=== PATIENT | female | born 1965 | race Caucasian/White ===

== ENCOUNTER 2017-01-30 16:22 | Emergency (ER) | payer MEDICAID ==
[~2017-01-30] VITALS: Ht 165.1 cm; Wt 75.0 kg
[2017-01-30] MEDS ORDERED: ZOLP10TA6 PO (20:30)
[2017-01-30] MEDS ORDERED: LORA10TA7 PO (20:30)
[2017-01-30] MEDS ORDERED: AMLO5TAB4 PO (20:30)
[2017-01-30] MEDS ORDERED: KETOROLAC 60MG/2ML VIAL IM NR (23:34)
[2017-01-30] MEDS ORDERED: ONDANSETRON 4MG ODT PO NR (23:45)
[2017-01-31 00:55] LABS: EOSINOPHILS % 1.7 % (0.0-5.0); HEMATOCRIT. 39.5 % (36.0-48.0); HEMOGLOBIN. 13.4 g/dL (12.0-16.0); LYMPHOCYTES % 46.9 % (20.0-50.0); MEAN CORPUSCULAR HEMOGLOBIN 29.8 pg (28.0-32.0); MEAN CORPUSCULAR VOLUME 87.7 fL (81.0-99.0); MEAN PLATELET VOLUME 9.9 fl (7.4-10.4); MONOCYTES % 5.4 % (2.0-8.0); PLATELET 169 x1000/uL (130-400); RED CELL DISTRIBUTION WIDTH 14.1 % (11.6-14.6)
[2017-01-31 01:02] LABS: CHLORIDE 106 mEq/L (98-107)
[2017-01-31 01:11] LABS: CARBON DIOXIDE 27 mEq/L (21-32); ETHANOL BLOOD < 10 mg/dL
[2017-01-31 01:59] VITALS: BP 125/70
== END 2017-01-31 02:01 | disposition home or self-care (01) ==
LOC: ER 17:41
DX: R51 Headache (principal); R09.81 Nasal congestion; I10 Essential (primary) hypertension; G47.00 Insomnia, unspecified; Z90.710 Acquired absence of both cervix and uterus
CPT/HCPCS: 36415; 70450; 80053; 85025; 93005; 96372; 99285; G0482; J1885; Q0162

== ENCOUNTER 2018-06-23 16:18 | Emergency (ER) | payer MEDICAID ==
[~2018-06-23] VITALS: Ht 157.5 cm; Wt 73.0 kg
[~2018-06-23 16:18] MED LIST: AMLO5TAB4 PO; LORA10TA7 PO; ZOLP10TA6 PO
[2018-06-24] MEDS ORDERED: METOCLOPRAMIDE HCL 10MG/2ML VIAL IV ONE
[2018-06-24] MEDS ORDERED: DIPHENHYDRAMINE 50MG/ML VIAL IV ONE
[2018-06-24 00:22] LABS: BASOPHILS % 1.2 % (0.0-2.0); EOSINOPHILS % 2.2 % (0.0-5.0); HEMATOCRIT. 40.1 % (36.0-48.0); HEMOGLOBIN. 13.7 g/dL (12.0-16.0); LYMPHOCYTES % 43.9 % (20.0-50.0); MEAN CORPUSCULAR HEMOGLOBIN 30.8 pg (28.0-32.0); MEAN CORPUSCULAR VOLUME 90.1 fL (81.0-99.0); MEAN PLATELET VOLUME 10.1 fl (7.4-10.4); MONOCYTES % 7.3 % (2.0-8.0); NEUTROPHILS % 45.4 % (40.0-76.0); PLATELET 150 x1000/uL (130-400); RED BLOOD CELL COUNT 4.45 mill/uL (4.2-5.4)
[2018-06-24 00:29] LABS: PROTHROMBIN TIME 10.4 sec (9.1-11.1)
[2018-06-24 00:55] LABS: CHLORIDE 106 mEq/L (98-107)
[2018-06-24 02:16] VITALS: BP 140/69
== END 2018-06-24 02:23 | disposition home or self-care (01) ==
LOC: ER 16:18
DX: I10 Essential (primary) hypertension (principal); E11.9 Type 2 diabetes mellitus without complications; E78.00 Pure hypercholesterolemia, unspecified
CPT/HCPCS: 36415; 70450; 71045; 80053; 83880; 84484; 85025; 85610; 96374; 96375; 99284; J1200; J2765; Z7610

== ENCOUNTER 2020-11-23 12:15 | Inpatient (IN) | payer MEDICAID ==
[~2020-11-23] VITALS: Ht 162.6 cm; Wt 73.3 kg
[2020-11-23] MEDS ORDERED: EPINEPHRINE 1:1000 1 MG/ML AMP INJ ONE (12:30)
[2020-11-23] MEDS ORDERED: MORPHINE SULFATE 4 MG/ML CPJ (NOT FOR IM USE) IV STA (12:56)
[2020-11-23] MEDS ORDERED: ACETAMINOPHEN 325MG TABLET PO STA (12:56)
[2020-11-23] MEDS ORDERED: VANCOMYCIN 1 G PREMIX 200 ML IV ONE (13:00)
[2020-11-23] MEDS ORDERED: SODIUM CHLORIDE 0.9% 1000ML BAG (SEPSIS BOLUS) IV ONE (13:00)
[2020-11-23] MEDS ORDERED: PIPERACILLIN/TAZ 3.375G PREMIX 50 ML IV ONE (13:00)
[2020-11-23 13:42] LABS: CHLORIDE 104 mEq/L (98-107)
[2020-11-23 13:59] LABS: BASOPHILS % 0.6 % (0.0-2.0); EOSINOPHILS % 0.2 % (0.0-5.0); HEMATOCRIT. 42.3 % (36.0-48.0); HEMOGLOBIN. 14.2 g/dL (12.0-16.0); LYMPHOCYTES % 21.1 % (20.0-50.0); MEAN CORPUSCULAR HEMOGLOBIN 31.8 pg (28.0-32.0); MEAN CORPUSCULAR VOLUME 94.4 fL (81.0-99.0); MEAN PLATELET VOLUME 10.5 fl (7.4-10.4); MONOCYTES % 6.5 % (2.0-8.0); NEUTROPHILS % 71.6 % (40.0-76.0); PLATELET 146 x1000/uL (130-400); RED BLOOD CELL COUNT 4.47 mill/uL (4.2-5.4); RED CELL DISTRIBUTION WIDTH 13.9 % (11.6-14.6)
[2020-11-23 14:26] LABS: PROTHROMBIN TIME 10.8 sec (9.6-11.0)
[2020-11-23] MEDS ORDERED: POTASSIUM CHLORIDE INJ 40 MEQ in DEXT 5% WATER 250 ML IV NR (16:00)
[2020-11-23] MEDS: AMLODIPINE 10MG TABLET PO SCH (18:00)
[2020-11-23 18:35] LABS: CLARITY URINE TURBID (CLEAR); COLOR URINE YELLOW (YELLOW); KETONES URINE TRACE (NEGATIVE); LEUKOCYTE ESTERASE URINE 2+ (NEGATIVE); NITRITE URINE NEGATIVE (NEGATIVE); OCCULT BLOOD URINE NEGATIVE (NEGATIVE); PH URINE 5.5 (4.5-8.0); PROTEIN URINE 1+ (NEGATIVE); UROBILINOGEN URINE 0.2 E.U./dL (0.2-1.0)
[2020-11-23] MEDS: BLOOD SUGAR DIAGNOSTIC STRIP TEST SCH (19:15)
[2020-11-23 21:35] VITALS: BP 139/70
[2020-11-24] VITALS (8 sets, daily range): BP systolic 109–140; BP diastolic 52–86
[2020-11-24] MEDS: AMPICILLIN SOD/SULBACTAM NA 3 G in SODIUM CHLORIDE 0.9% 100 ML IV SCH ×4 (00:09→18:11)
[2020-11-24] MEDS: ACETAMINOPHEN 325MG TABLET PO PRN ×3 (00:41→17:25)
[2020-11-24] MEDS ORDERED: METHOCARBAMOL 500MG TABLET PO PRN (01:00)
[2020-11-24] MEDS ORDERED: CETIRIZINE 10MG TABLET PO PRN (03:00)
[2020-11-24] MEDS: VANCOMYCIN 750 MG PREMIX 150 ML IV SCH ×2 (04:17→15:23)
[2020-11-24] MEDS: BLOOD SUGAR DIAGNOSTIC STRIP TEST SCH ×4 (06:09→17:30)
[2020-11-24 06:15] LABS: BASOPHILS % 0.3 % (0.0-2.0); EOSINOPHILS % 0.1 % (0.0-5.0); HEMATOCRIT. 37.8 % (36.0-48.0); HEMOGLOBIN. 12.8 g/dL (12.0-16.0); LYMPHOCYTES % 19.4 % (20.0-50.0); MEAN CORPUSCULAR HEMOGLOBIN 32.1 pg (28.0-32.0); MEAN CORPUSCULAR VOLUME 94.8 fL (81.0-99.0); MEAN PLATELET VOLUME 10.8 fl (7.4-10.4); NEUTROPHILS % 72.2 % (40.0-76.0); PLATELET 129 x1000/uL (130-400); RED BLOOD CELL COUNT 3.99 mill/uL (4.2-5.4); RED CELL DISTRIBUTION WIDTH 13.9 % (11.6-14.6)
[2020-11-24] MEDS: GABAPENTIN 300MG CAPSULE PO SCH ×3 (06:17→21:32)
[2020-11-24] MEDS: METFORMIN HCL 500MG TABLET PO SCH (06:38)
[2020-11-24 07:00] LABS: CHLORIDE 106 mEq/L (98-107)
[2020-11-24] MEDS ORDERED: POTASSIUM CHLORIDE 20MEQ TABLET SR PO SCH (08:45)
[2020-11-24] MEDS: OMEPRAZOLE 20MG CAPSULE EXTENDED RELEASE PO SCH (08:52)
[2020-11-24] MEDS: AMLODIPINE 10MG TABLET PO SCH (08:52)
[2020-11-24] MEDS ORDERED: METFORMIN HCL 500MG TABLET PO ONE (09:00)
[2020-11-24] MEDS ORDERED: INSULIN GLARGINE UD 100 UNITS/ML SYR SUBCUT SCH ×2 (15:00→22:00)
[2020-11-24] MEDS ORDERED: FAMOTIDINE 20MG TABLET PO SCH (21:00)
[2020-11-24] MEDS: ATORVASTATIN CALCIUM 20MG TABLET PO SCH (21:32)
[2020-11-24] MEDS: HYDROCODONE/ACETAMINOPHEN 10/325MG TABLET PO PRN (21:57)
[2020-11-25] VITALS (7 sets, daily range): BP systolic 111–131; BP diastolic 60–78
[2020-11-25] MEDS: AMPICILLIN SOD/SULBACTAM NA 3 G in SODIUM CHLORIDE 0.9% 100 ML IV SCH ×4 (00:18→18:40)
[2020-11-25] MEDS: BLOOD SUGAR DIAGNOSTIC STRIP TEST SCH ×5 (00:30→20:45)
[2020-11-25 04:20] LABS: CHLORIDE 107 mEq/L (98-107)
[2020-11-25] MEDS ORDERED: VANCOMYCIN 750 MG PREMIX 150 ML IV SCH (06:00)
[2020-11-25] MEDS: GABAPENTIN 300MG CAPSULE PO SCH ×3 (06:00→20:45)
[2020-11-25] MEDS: HYDROCODONE/ACETAMINOPHEN 10/325MG TABLET PO PRN ×2 (06:10→13:44)
[2020-11-25] MEDS: METFORMIN HCL 500MG TABLET PO SCH (06:52)
[2020-11-25] MEDS: AMLODIPINE 10MG TABLET PO SCH (09:00)
[2020-11-25] MEDS: OMEPRAZOLE 20MG CAPSULE EXTENDED RELEASE PO SCH (09:05)
[2020-11-25] MEDS ORDERED: POTASSIUM CHLORIDE 20MEQ TABLET SR PO SCH (12:00)
[2020-11-25] MEDS ORDERED: DEXTROSE 50% WATER 50ML SYRINGE IV PRN (12:30)
[2020-11-25] MEDS: INSULIN LISPRO 100 UNITS/ML SUBCUT SCH ×3 (13:43→20:45)
[2020-11-25] MEDS: VANCOMYCIN 1 G PREMIX 200 ML IV SCH ×2 (15:04→20:44)
[2020-11-25] MEDS ORDERED: NALOXONE HCL 0.4MG/ML VIAL IV PRN (16:30)
[2020-11-25] MEDS ORDERED: ONDANSETRON HCL 4MG/2ML INJ IV PRN (18:30)
[2020-11-25] MEDS: ACETAMINOPHEN 325MG TABLET PO PRN (18:42)
[2020-11-25] MEDS: ATORVASTATIN CALCIUM 20MG TABLET PO SCH (20:45)
[2020-11-25] MEDS: INSULIN GLARGINE UD 100 UNITS/ML SYR SUBCUT SCH (22:15)
[2020-11-26] VITALS: BP 120/64
[2020-11-26] MEDS: AMPICILLIN SOD/SULBACTAM NA 3 G in SODIUM CHLORIDE 0.9% 100 ML IV SCH ×4 (00:22→17:49)
[2020-11-26] MEDS: HYDROCODONE/ACETAMINOPHEN 10/325MG TABLET PO PRN ×4 (00:27→20:21)
[2020-11-26 04:00] VITALS: BP 132/67
[2020-11-26] MEDS: VANCOMYCIN 1 G PREMIX 200 ML IV SCH ×3 (05:05→22:03)
[2020-11-26] MEDS: GABAPENTIN 300MG CAPSULE PO SCH ×3 (05:52→21:27)
[2020-11-26] MEDS: BLOOD SUGAR DIAGNOSTIC STRIP TEST SCH ×4 (05:52→21:27)
[2020-11-26] MEDS: INSULIN LISPRO 100 UNITS/ML SUBCUT SCH ×4 (06:43→22:07)
[2020-11-26] MEDS: METFORMIN HCL 500MG TABLET PO SCH (06:44)
[2020-11-26 08:00] VITALS: BP 123/74
[2020-11-26] MEDS: FAMOTIDINE 20MG TABLET PO SCH ×2 (09:02→21:27)
[2020-11-26] MEDS: AMLODIPINE 10MG TABLET PO SCH (09:02)
[2020-11-26 12:00] VITALS: BP 124/69
[2020-11-26 13:21] LABS: CHLORIDE 103 mEq/L (98-107)
[2020-11-26 16:00] VITALS: BP 110/63
[2020-11-26 20:00] VITALS: BP 130/73
[2020-11-26] MEDS: ATORVASTATIN CALCIUM 20MG TABLET PO SCH (21:27)
[2020-11-26] MEDS: INSULIN GLARGINE UD 100 UNITS/ML SYR SUBCUT SCH (22:07)
[2020-11-27] VITALS: BP 133/68
[2020-11-27] MEDS: AMPICILLIN SOD/SULBACTAM NA 3 G in SODIUM CHLORIDE 0.9% 100 ML IV SCH ×4 (00:11→17:23)
[2020-11-27] MEDS: HYDROCODONE/ACETAMINOPHEN 10/325MG TABLET PO PRN ×3 (00:12→20:57)
[2020-11-27 04:00] VITALS: BP 134/75
[2020-11-27] MEDS: DIPHENHYDRAMINE 50MG/ML VIAL IV PRN ×2 (04:10→23:16)
[2020-11-27] MEDS: GABAPENTIN 300MG CAPSULE PO SCH ×3 (05:31→21:36)
[2020-11-27] MEDS: VANCOMYCIN 1 G PREMIX 200 ML IV SCH ×3 (06:42→21:37)
[2020-11-27] MEDS: BLOOD SUGAR DIAGNOSTIC STRIP TEST SCH ×4 (07:01→21:27)
[2020-11-27] MEDS: INSULIN LISPRO 100 UNITS/ML SUBCUT SCH ×4 (07:14→21:39)
[2020-11-27 08:00] VITALS: BP 105/58
[2020-11-27] MEDS: METFORMIN HCL 500MG TABLET PO SCH (08:39)
[2020-11-27] MEDS: FAMOTIDINE 20MG TABLET PO SCH ×2 (08:39→21:36)
[2020-11-27] MEDS: AMLODIPINE 10MG TABLET PO SCH (08:39)
[2020-11-27 12:00] VITALS: BP 119/60
[2020-11-27 16:00] VITALS: BP 110/57
[2020-11-27 20:00] VITALS: BP 128/65
[2020-11-27] MEDS: ATORVASTATIN CALCIUM 20MG TABLET PO SCH (21:36)
[2020-11-27] MEDS: INSULIN GLARGINE UD 100 UNITS/ML SYR SUBCUT SCH (21:38)
[2020-11-28] VITALS: BP 113/70
[2020-11-28] MEDS: AMPICILLIN SOD/SULBACTAM NA 3 G in SODIUM CHLORIDE 0.9% 100 ML IV SCH ×3 (00:27→12:33)
[2020-11-28] MEDS: HYDROCODONE/ACETAMINOPHEN 10/325MG TABLET PO PRN ×2 (02:11→11:02)
[2020-11-28 04:00] VITALS: BP 118/75
[2020-11-28] MEDS: BLOOD SUGAR DIAGNOSTIC STRIP TEST SCH ×2 (06:27→11:40)
[2020-11-28] MEDS: GABAPENTIN 300MG CAPSULE PO SCH ×2 (06:27→14:59)
[2020-11-28] MEDS: INSULIN LISPRO 100 UNITS/ML SUBCUT SCH ×2 (06:50→11:56)
[2020-11-28] MEDS: VANCOMYCIN 1 G PREMIX 200 ML IV SCH (06:50)
[2020-11-28 08:00] VITALS: BP 136/71
[2020-11-28] MEDS: AMLODIPINE 10MG TABLET PO SCH (08:58)
[2020-11-28] MEDS: METFORMIN HCL 500MG TABLET PO SCH (08:58)
[2020-11-28] MEDS: FAMOTIDINE 20MG TABLET PO SCH (08:58)
[2020-11-28 10:43] LABS: CHLORIDE 105 mEq/L (98-107)
[2020-11-28 10:45] LABS: BASOPHILS % 0.4 % (0.0-2.0); EOSINOPHILS % 1.4 % (0.0-5.0); HEMATOCRIT. 32.4 % (36.0-48.0); LYMPHOCYTES % 30.8 % (20.0-50.0); MEAN CORPUSCULAR HEMOGLOBIN 32.2 pg (28.0-32.0); MEAN CORPUSCULAR VOLUME 94.9 fL (81.0-99.0); MEAN PLATELET VOLUME 9.6 fl (7.4-10.4); MONOCYTES % 8.6 % (2.0-8.0); NEUTROPHILS % 58.8 % (40.0-76.0); PLATELET 215 x1000/uL (130-400); RED BLOOD CELL COUNT 3.42 mill/uL (4.2-5.4); RED CELL DISTRIBUTION WIDTH 13.6 % (11.6-14.6)
[2020-11-28 12:00] VITALS: BP 115/63
[2020-11-28] MEDS ORDERED: POTASSIUM CHLORIDE 20MEQ TABLET SR PO NR (12:15)
[2020-11-28 14:48] VITALS: BP 115/63
[2020-11-28] MEDS ORDERED: INSULIN GLARGINE UD 100 UNITS/ML SYR SUBCUT SCH (22:00)
== END 2020-11-28 16:00 | disposition home or self-care (01) | DRG 720 ==
LOC: ER 13:30 → 7EST 13:59 → EDBEDREQ 14:03 → EDBEDREQSVC 14:03 → SUPCPDRO 16:03 → ENRESERV 19:11
PROVIDERS: ADMIT Internal Medicine; ATTEND Internal Medicine
DX: A41.9 Sepsis, unspecified organism (principal); E11.65 Type 2 diabetes mellitus with hyperglycemia; L03.213 Periorbital cellulitis; E66.9 Obesity, unspecified; E78.00 Pure hypercholesterolemia, unspecified; R65.20 Severe sepsis without septic shock; E78.5 Hyperlipidemia, unspecified; I10 Essential (primary) hypertension; Z90.710 Acquired absence of both cervix and uterus; Z79.899 Other long term (current) drug therapy; Z68.27 Body mass index [BMI] 27.0-27.9, adult; K04.7 Periapical abscess without sinus
CPT/HCPCS: 36415; 70486; 80048; 80053; 80202; 81003; 82962; 83036; 83605; 83735; 84145; 84484; 85025; 93005; 99291; J0295; J1200; J1815; J2270; J2405; J2543; J3370; J3480; J3490; J7030; J7050; J7060

== ENCOUNTER 2022-12-23 14:57 | Emergency (ER) | payer MEDICARE, MEDICAID ==
[~2022-12-23] VITALS: Ht 160 cm; Wt 63.6 kg
[2022-12-23 15:35] VITALS: BP 135/85; RESP 18; TEMP 98.2; O2SAT 98
[2022-12-23 15:37] VITALS: PULSE 82
[2022-12-23] MEDS ORDERED: BENZ200C52 PO (17:24)
== END 2022-12-23 19:31 | disposition home or self-care (01) ==
LOC: ER 14:57
DX: R05.9 Cough, unspecified (principal); J06.9 Acute upper respiratory infection, unspecified; F41.9 Anxiety disorder, unspecified; F32.9 Major depressive disorder, single episode, unspecified; E11.9 Type 2 diabetes mellitus without complications; E78.00 Pure hypercholesterolemia, unspecified; I10 Essential (primary) hypertension; Z90.710 Acquired absence of both cervix and uterus
CPT/HCPCS: 71045; 99283